=== PATIENT | male | born 1980 | race Two or more races ===

== ENCOUNTER 2018-03-12 17:39 | Emergency (ER) | payer MEDICAID, OTHER ==
[~2018-03-12] VITALS: Ht 188 cm; Wt 137.9 kg
[~2018-03-12 17:39] MED LIST: ACTOS; ENAL5TAB PO; GLIP-115 PO; METF-370; PEPCID; SERT-135
[2018-03-12 18:34] LABS: Urine WBC None Seen /hpf (0 - 3)
[2018-03-12 18:56] LABS: Urine Bacteria NONE SEEN /hpf (None Seen); Urine Blood Negative /uL (Negative); Urine Specific Gravity 1.013 (1.001-1.035)
[2018-03-12 19:15] VITALS: BP 132/76
[2018-03-12 19:16] LABS: Basophils # (auto) 0 uL; Basophils % (auto) 0.4 % (0.0-2.0); Eosinophils # (auto) 0.2 uL; Eosinophils % (auto) 2.6 % (0.0-7.0); Hemoglobin 16.9 g/dL (13.5-17.5); Lymphocytes # (auto) 1.6 uL; Lymphocytes % (auto) 22.8 % (10.0-50.0); Mean Corpuscular Hemoglobin 33.6 pg (28.0-32.0); Mean Corpuscular Hgb Conc. 35.9 g/dL (32.0-36.0); Mean Corpuscular Volume 93.6 fL (80.0-100.0); Monocytes # (auto) 0.5 uL; Monocytes % (auto) 6.6 % (0.0-12.0); Neutrophils # (auto) 4.6 uL; Neutrophils % (auto) 67.6 % (37.0-80.0); Nucleated Red Blood Cells % 0.2 %; Platelet Count (auto) 172 10^3/uL (140-450); Red Blood Cells 5.03 10^6/uL (4.5-5.90); Red Cell Distribution Width 13.6 % (11.8-14.3); White Blood Cell 6.9 10^3/uL (4.4-10.8)
[2018-03-12 19:28] LABS: Calcium 8.6 mg/dL (8.5-10.1); Potassium 4.1 mmol/L (3.5-5.1)
[2018-03-12 19:32] LABS: BUN/Creatinine Ratio 13.2; Total Protein 7.4 g/dL (6.4-8.2)
[2018-03-12] MEDS ORDERED: traMADol HCL 50 MG TAB PO ONE (21:00)
== END 2018-03-12 21:00 | disposition home or self-care (01) ==
LOC: ER 17:39
DX: R10.9 Unspecified abdominal pain (principal); M79.18 Myalgia, other site; E11.9 Type 2 diabetes mellitus without complications; K21.9 Gastro-esophageal reflux disease without esophagitis; Z87.11 Personal history of peptic ulcer disease
CPT/HCPCS: 36415; 74176; 80053; 81001; 85025

== ENCOUNTER 2018-06-13 12:23 | Emergency (ER) | payer MEDICAID ==
[~2018-06-13] VITALS: Ht 188 cm; Wt 145.1 kg
[2018-06-13 14:28] VITALS: BP 139/76
== END 2018-06-13 17:06 | disposition home or self-care (01) ==
LOC: ER 12:23
DX: M79.645 Pain in left finger(s) (principal); E11.9 Type 2 diabetes mellitus without complications; K21.9 Gastro-esophageal reflux disease without esophagitis; F41.9 Anxiety disorder, unspecified; F32.9 Major depressive disorder, single episode, unspecified; Z87.11 Personal history of peptic ulcer disease
CPT/HCPCS: 29125; 73110

== ENCOUNTER 2018-07-03 17:57 | Emergency (ER) | payer MEDICAID ==
[~2018-07-03] VITALS: Ht 188 cm; Wt 137.4 kg
[2018-07-03 19:18] LABS: Basophils # (auto) 0 uL; Basophils % (auto) 0.2 % (0.0-2.0); Eosinophils # (auto) 0.2 uL; Eosinophils % (auto) 2.8 % (0.0-7.0); Hematocrit 46.2 % (41.0-53.0); Hemoglobin 16.2 g/dL (13.5-17.5); Lymphocytes # (auto) 1.4 uL; Lymphocytes % (auto) 19.7 % (10.0-50.0); Mean Corpuscular Hemoglobin 33.5 pg (28.0-32.0); Mean Corpuscular Hgb Conc. 35.1 g/dL (32.0-36.0); Mean Corpuscular Volume 95.7 fL (80.0-100.0); Monocytes # (auto) 0.4 uL; Monocytes % (auto) 5.5 % (0.0-12.0); Neutrophils % (auto) 71.8 % (37.0-80.0); Nucleated Red Blood Cells % 1.3 %; Platelet Count (auto) 179 10^3/uL (140-450); Red Blood Cells 4.83 10^6/uL (4.5-5.90); Red Cell Distribution Width 12.8 % (11.8-14.3)
[2018-07-03 19:29] LABS: Urine Bacteria NONE SEEN /hpf (None Seen); Urine Blood Negative /uL (Negative); Urine Mucus FEW (None Seen); Urine Specific Gravity 1.032 (1.001-1.035); Urine WBC 1 /hpf (0 - 3)
[2018-07-03 19:39] LABS: Albumin 3.9 g/dL (3.4-5.0); BUN/Creatinine Ratio 16.3; Potassium 4.1 mmol/L (3.5-5.1)
[2018-07-03 19:42] LABS: Total Protein 7.4 g/dL (6.4-8.2)
[2018-07-03 20:25] VITALS: BP 152/103
== END 2018-07-03 21:03 | disposition home or self-care (01) ==
LOC: ER 18:05
DX: R30.0 Dysuria (principal); H57.9 Unspecified disorder of eye and adnexa; T49.0X5A Adverse effect of local antifungal, anti-infective and anti-inflammatory drugs, initial encounter; E11.9 Type 2 diabetes mellitus without complications; K21.9 Gastro-esophageal reflux disease without esophagitis; Z79.84 Long term (current) use of oral hypoglycemic drugs; Y92.89 Other specified places as the place of occurrence of the external cause
CPT/HCPCS: 36415; 80053; 81001; 85025

== ENCOUNTER 2025-01-26 14:54 | Emergency (ER) | payer MEDICAID ==
[~2025-01-26] VITALS: Ht 185.4 cm; Wt 123.7 kg
[~2025-01-26 14:54] MED LIST changes: -ENAL5TAB PO; +ENAL5TAB22 PO; -GLIP-115 PO; +GLIP5TAB21 PO; -SERT-135; +SERT100T
--- NOTE | 2025-01-26 16:39 | ED.PDOC ---
Back pain HPI HPI Comments 44 y.o male presents to the ED for a chief complain to mid lumbar pain radiating down to bilateral legs that started about 3-4 weeks ago. Patient was recently admitted to the hospital for sepsis, unknown cause around 12/31/24 and d/c 4 days ago with antibiotics. Patient mention d/t laying for a long period of time, he developed back pain since then that has gradually worsened. He denies any recent falls, tingling, numbness sensation or incontinence. Chief Complaint: Back Pain Time Seen by MD: 16:10 Primary Care Provider: CHERRY Reviewed Notes: Nurses Notes, Medications, Allergies Allergies: Coded Allergies: NO KNOWN ALLERGIES (Unverified , 10/08/10) Home Meds Reported Medications Glipizide (Glipizide) 5 Mg Tab, 1 TAB PO BID, #60 TAB 3 Refills 12/17/15 Enalapril Maleate (Enalapril Maleate) 5 Mg Tab, 1 TAB PO DAILY, #30 TAB 5 Refills 12/17/15 Sertraline Hcl (Zoloft) 100 Mg Tab 10/08/10 [Pepcid] No Conflict Check 10/08/10 [Actos] No Conflict Check 10/08/10 Metformin Hydrochloride (Metformin Hcl) 500 Mg Tab 10/08/10 Information Source: Patient Mode of Arrival: Ambulatory Timing: Months (1) Duration: Since onset Location of Back pain: (B) Lower back, (B) Lumbar Severity: Moderate Quality: Sharp Onset: Spontaneous History of: None Modifying Factors: Nothing Associated signs and symptoms: None Past Medical History PAST MEDICAL HISTORY: Anxiety, Depression, DM, GERD, PUD Surgical History: Denies all surgeries Family History Family History: No family hx of DM, No family hx of Heart abe, No family hx of HTN Social History Smoker: Non-Smoker Alcohol: Rarely Drugs: Denies Drug Use Lives In: Home Constitutional: denies: chills, diaphoresis, fatigue, fever, malaise, sweats, weakness, others EENTM: denies: blurred vision, double vision, ear bleeding, ear discharge, ear drainage, ear pain, ear ringing, eye pain, eye redness, hearing loss, mouth pain, mouth swelling, nasal discharge, nose bleeding, nose congestion, nose pain, photophobia, tearing, throat pain, throat swelling, voice changes, others Respiratory: denies: cough, hemoptysis, orthopnea, SOB at rest, shortness of breath, SOB with excertion, stridor, wheezing, others Cardiovascular: denies: chest pain, dizzy spells, diaphoresis, Dyspnea on exertion, edema, irregular heart beat, left arm pain, lightheadedness, palpitations, PND, syncope, others Gastrointestinal: denies: abdomen distended, abdominal pain, blood streaked bowels, constipated, diarrhea, dysphagia, difficulty swallowing, hematemesis, melena, nausea, poor appetite, poor fluid intake, rectal bleeding, rectal pain, vomiting, others Genitourinary: denies: burning, dysuria, flank pain, frequency, hematuria, incontinence, penile discharge, penile sore, pain, testicle pain, testicle swelling, urgency, others Neurological: denies: dizziness, fainting, headache, left sided numbness, left sided weakness, numbness, paresthesia, pre-existing deficit, right sided numbness, right sided weakness, seizure, speech problems, tingling, tremors, weakness, others Musculoskeletal: reports: back pain; denies: gout, joint pain, joint swelling, muscle pain, muscle stiffness, neck pain, others Integumetry: denies: bruises, change in color, change in hair/nails, dryness, laceration, lesions, lumps, rash, wounds, others Allergic/Immunocompromised: denies: Difficulty Healing, Frequent Infections, Hives, Itching, others Hematologic/Lymphatic: denies: anemia, blood clots, easy bleeding, easy bruising, swollen glands, others Endocrine: denies: excessive hunger, excessive sweating, excessive thirst, excessive urination, flushing, intolerance to cold, intolerance to heat, unex plained weight gain, unexplained weight loss, others Psychiatric: denies: anxiety, bipolar disorder, depression, hopeless, panic disorder, schizophrenia, sleepless, suicidal, others All Other Systems: Reviewed and Negative Physical Exam General Appearance: Moderate Distress HEENT: Normal ENT Inspection, Pharynx Normal, TMs Normal Neck: Full Range of Motion, Non-Tender, Normal, Normal Inspection Respiratory: Chest Non-Tender, Lungs Clear, No Accessory Muscle Use, No Respiratory Distress, Normal Breath Sounds Cardiovascular: No Edema, No JVD, No Murmur, No Gallop, Normal Peripheral Pulses, Regular Rate/Rhythm Breast Exam: Deferred Gastrointestinal: No Organomegaly, Non Tender, No Pulsatile Mass, Normal Bowel Sounds, Soft Genitalia: Deferred Pelvic: Deferred Rectal: Deferred Extremities: No calf tenderness, Normal capillary refill, Normal inspection, Normal range of motion, Non-tender, No pedal edema Musculoskeletal : Apperance: Normal Neurologic: Alert, 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 Was a procedure done?: No Back Pain Differential Dx Differential Diagnosis: Fracture, Musculoskeletal Pain X-Ray, Labs, Meds, VS Vital Signs Date Time Temp Pulse Resp B/P (MAP) Pulse Ox O2 Delivery O2 Flow Rate FiO2 01/26/25 14:56 97.8 104 20 104/74 97 97.8 Patient alert. Came in because of the same symptom as he has been coming for the past several days. Chronic back pain. Vitals stable. Has been admitted in this hospital for possible sepsis. No acute distress. Ambulating. Saturation pristine on room air. Respiratory rate within normal limits. No recent trauma. Was given Toradol. Reviewed his previous visit. Was given prescription of Soma. Explained to the patient. Was told to follow up with his primary care physician. Was told to come back if there is any problem. Time of 1ST Reevaluation: 16:34 Reevaluation 1ST: Unchanged Patient Education/Counseling: Diagnosis, Treatment, Prognosis Family Education/Counseling: No Family Present SEPSIS Sepsis Screen Date sepsis recognized/suspect: Jan 26, 2025 Time Sepsis recognized/suspect: 1456 Recent Procedure: No On Antibiotic Therapy: No Respiratory Rate >20: No Heart Rate >90: Yes Temp<36 C (96.8 F) or >38.3 C: No SBP <90 or MAP <65 mmHG: No New Acute Mental Status Change: No Is the patient on CPAP, BIPAP,: No Vital Signs Date Time Temp Pulse Resp B/P (MAP) Pulse Ox O2 Delivery O2 Flow Rate FiO2 01/26/25 14:56 97.8 104 20 104/74 97 97.8 Departure 1 Departure Time of Disposition: 17:08 Impression: Primary Impression: Lumbar sprain Qualified Codes: S33.5XXA - Sprain of ligaments of lumbar spine, initial encounter Additional Impression: Musculoskeletal pain Disposition: HOME / SELF CARE / HOMELESS Condition: Good e-Prescriptions Carisoprodol (Soma) 250 Mg Tab 250 MG PO DAILY for 5 Days, #5 TAB Prov: WINTER ALBERT MD 01/26/25 Discharged With: Self Critical Care Note Critical Care Time?: No Stability Stability form required: No I personally scribed for WINTER ALBERT MD ([email or web address]) on 01/26/25 at 16:38. Electronically submitted by Valentina Pierre ([facility]). WINTER ALBERT MD Jan 26, 2025 16:38
[2025-01-26] MEDS ORDERED: CARI250T PO (17:09)
[2025-01-26] MEDS: CARISOPRODOL 350 MG TAB PO ONE (17:12)
[2025-01-26] MEDS: KETOROLAC TROMETH 60MG/2ML VIAL IM ONE (17:13)
[2025-01-26 17:19] VITALS: BP 103/66; PULSE 81; RESP 17; TEMP 98.7; O2SAT 95
== END 2025-01-26 17:42 | disposition home or self-care (01) ==
LOC: ER 14:54
DX: S33.5XXA Sprain of ligaments of lumbar spine, initial encounter (principal); E11.9 Type 2 diabetes mellitus without complications; K21.9 Gastro-esophageal reflux disease without esophagitis; F32.A Depression, unspecified; F41.9 Anxiety disorder, unspecified; Z87.11 Personal history of peptic ulcer disease; W18.30XA Fall on same level, unspecified, initial encounter; Y93.89 Activity, other specified; Y92.89 Other specified places as the place of occurrence of the external cause; Y99.8 Other external cause status
CPT/HCPCS: 96372; 99283; J1885